=== PATIENT | female | born 1990 | race Caucasian/White ===

== ENCOUNTER 2018-04-06 08:39 | Emergency (ER) | payer MEDICARE, OTHER ==
[2018-04-06] MEDS ORDERED: SODIUM CHLORIDE 0.9% 1,000 ML IV ONE (09:04)
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
[2018-04-06 09:46] LABS: BASOPHILS # (AUTO) 0.1 10^3/uL (0.0-0.1); BASOPHILS % (AUTO) 0.9 %; EOSINOPHILS % (AUTO) 0.1 %; HGB - HEMOGLOBIN 14.4 g/dL (12.0-16.0); LYMPHOCYTES # (AUTO) 0.8 10^3/uL (1.5-3.5); LYMPHOCYTES % (AUTO) 11.6 %; MEAN CORPUSCULAR HEMOGLOBIN 32.9 pg (27.0-31.0); MEAN CORPUSCULAR HGB CONC 33.8 g/dL (32.0-36.0); MEAN CORPUSCULAR VOLUME 97.3 fL (81.0-99.0); MEAN PLATELET VOLUME 8.4 fL (7.9-10.8); MONOCYTES # (AUTO) 0.2 10^3/uL (0.0-1.0); MONOCYTES % (AUTO) 3.2 %; NEUTROPHILS % (AUTO) 84.2 %; PLT - PLATELET COUNT 166 10^3/uL (130-450); RED BLOOD COUNT 4.39 10^6/uL (4.20-5.40); RED CELL DISTRIBUTION WIDTH 14.3 % (12.0-15.0); WHITE BLOOD COUNT 7.1 x10^3/uL (4.8-10.8)
[2018-04-06 10:10] LABS: ALBUMIN 4.4 g/dL (3.2-5.5); ALBUMIN/GLOBULIN RATIO 1.4 (1.0-2.2); BILIRUBIN,TOTAL 1.3 mg/dL (0.2-1.0); CREATININE 0.7 mg/dL (0.4-1.0); TOTAL PROTEIN 7.5 g/dL (6.7-8.2)
[2018-04-06 11:37] VITALS: BP 113/68
== END 2018-04-06 11:28 | disposition home or self-care (01) ==
LOC: ED 08:39
DX: E16.2 Hypoglycemia, unspecified (principal); E86.0 Dehydration; F10.10 Alcohol abuse, uncomplicated; Z87.820 Personal history of traumatic brain injury
CPT/HCPCS: 36415; 80053; 83690; 85025; 93005; 96360; 99283; 99284

== ENCOUNTER 2019-07-06 08:00 | Outpatient (CLI) | payer MEDICARE ==
[2019-07-06 14:46] LABS: BILIRUBIN,URINE NEGATIVE (NEGATIVE); GLUCOSE, URINE (UA) NEGATIVE (NEGATIVE); KETONES,URINE (UA) NEGATIVE (NEGATIVE); LEUKOCYTE ESTERASE, URINE SMALL (NEGATIVE); NITRITE,URINE NEGATIVE (NEGATIVE); OCCULT BLOOD,URINE LARGE (NEGATIVE); PROTEIN,URINE NEGATIVE (NEGATIVE); UROBILINOGEN,URINE 0.2 (NORMAL) E.U./dL (NORMAL)
[2019-07-06 15:09] LABS: BACTERIA,URINE Many /HPF (None Seen); CLARITY,URINE CLOUDY (CLEAR); RBC,URINE TNTC /HPF (0-5); SQUAMOUS EPITHELIAL CELL,UR RARE Squamous (<= Few); WBC CLUMPS,URINE PRESENT
== END 2019-07-06 23:59 | disposition home or self-care (01) ==
LOC: LAB.R 08:00
PROVIDERS: ATTEND Obstetrics & Gynecology
DX: N39.0 Urinary tract infection, site not specified (principal)
CPT/HCPCS: 81001; 81003

== ENCOUNTER 2019-07-09 08:00 | Outpatient (CLI) | payer MEDICARE | END 2019-07-09 23:59 | disposition home or self-care (01) | LOC: LAB.WC 08:00 | PROVIDERS: ATTEND Obstetrics & Gynecology | DX: N39.0 Urinary tract infection, site not specified (principal) | CPT/HCPCS: 81002 ==

== ENCOUNTER 2020-10-06 08:00 | Outpatient (CLI) | payer MEDICARE ==
[2020-10-06 20:31] LABS: CANDIDA GROUP DNA POSITIVE (NEGATIVE); CANDIDA KRUSEI DNA NEGATIVE (NEGATIVE); TRICHOMONAS VAGINALIS DNA NEGATIVE (NEGATIVE)
== END 2020-10-06 23:59 | disposition home or self-care (01) ==
LOC: LAB.R 08:00
PROVIDERS: ATTEND Obstetrics & Gynecology
DX: T19.2XXS Foreign body in vulva and vagina, sequela (principal); Z11.3 Encounter for screening for infections with a predominantly sexual mode of transmission; N76.0 Acute vaginitis
CPT/HCPCS: 87661; 87801

== ENCOUNTER 2023-03-24 08:00 | Outpatient (CLI) | payer MEDICARE | END 2023-03-24 23:59 | disposition home or self-care (01) | LOC: LAB.WC 08:00 | PROVIDERS: ATTEND Nurse Practitioner | DX: Z32.00 Encounter for pregnancy test, result unknown (principal) ==

== ENCOUNTER 2024-04-25 11:22 | Outpatient (CLI) | payer MEDICARE | END 2024-04-25 11:23 | disposition home or self-care (01) | LOC: LAB.N 11:22 | PROVIDERS: ATTEND Obstetrics & Gynecology | DX: D53.9 Nutritional anemia, unspecified (principal) | CPT/HCPCS: 36415; 82607 ==